=== PATIENT | female | born 1960 | race Caucasian/White ===

== ENCOUNTER 2018-04-14 06:26 | Day surgery (SDC) | payer BC ==
--- NOTE | 2018-04-12 16:19 | RAD REPORT ---
EXAM DESCRIPTION: RAD - Chest Pa And Lat (2 Views) - 04/12/2018 4:14 pm CLINICAL HISTORY: Preop chest, pending cholecystectomy COMPARISON: July 2013, June 2013 TECHNIQUE: PA and lateral views of the chest were obtained. FINDINGS: The lungs are clear. Lung markings are similar to comparison. Right convexity in the medi astinum not clearly different back to the June 2013 study. Heart size is normal and central vascul ature is within normal limits. No pleural effusion or pneumothorax seen. No acute bony finding note d. No aortic abnormality. IMPRESSION: No acute cardiopulmonary process.
[2018-04-12 17:04] LABS: Absolute Lymphocytes (CBC) 2.3 K/uL (0.7-4.9); Absolute Monocytes 0.6 K/uL (0.1-1.3); Absolute Neutrophil 3.6 K/uL (1.8-8.0); Basophils % 1.2 % (0-1.3); Eosinophils % 3.1 % (0-4.4); Hematocrit 38.1 % (36.0-45.0); Lymphocytes % 33.8 % (15.3-44.8); MCH 30.3 pg (27.0-35.0); MCV 92.1 fL (80-100); MPV 9.8 fL (7.6-11.3); Monocytes % 8.7 % (3.3-12.3); RBC Red Blood Cell Count 4.14 M/uL (3.86-4.86)
[2018-04-12 17:19] LABS: Potassium 3.9 mmol/L (3.5-5.1)
[2018-04-12 17:21] LABS: ALT/SGPT 25 U/L (12-78); AST/SGOT 15 U/L (15-37); Albumin 3.4 g/dL (3.4-5.0); Alkaline Phosphatase 122 U/L (45-117); Amylase Level 35 U/L (25-115); Bilirubin Direct < 0.1 mg/dL (0-0.2); Bilirubin Total 0.2 mg/dL (0.2-1.0); Lipase 129 U/L (73-393)
--- OUTSIDE RECORDS SUMMARY | 2018-04-14 06:35 | XMS REPORT | Summary of Care ---
:1960 Author Organization [facility] Address [address] [address], [place] [address]- Encounter HQ Encntr_alias(FIN) [id number] Date(s): 01/18/15 - 02/16/15 [facility] [address] [place] [address]- Discharge Disposition: Home Attending Physician: Shelia Bryan MD Vital Signs No data available for this section Problem List No data available for this section Allergies, Adverse Reactions, Alerts No data available for this section Medications No data available for this section Results No data available for this section Immunizations No data available for this section Procedures No data available for this section Social History No data available for this section Assessment and Plan No data available for this section
--- OUTSIDE RECORDS SUMMARY | 2018-04-14 06:35 | XMS REPORT | Continuity of Care Document ---
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 [id number] 01/13/1978 06/08/1984, [facility] section<sup>1</sup 02/614174 > [id number] 01/13/1978 06/08/1984, [facility] section<sup>1</sup 02/136364 [place] > [id number] 01/13/1978 06/08/1984, [facility] section<sup>1</sup 02/649742 [facility] >
--- OUTSIDE RECORDS SUMMARY | 2018-04-14 06:36 | XMS REPORT | Summary of Care ---
:1960 Author Organization [facility] Out[facility] [place] Address [address], [place] [address]- Encounter HQ Encntr_alias(FIN) [id number] Date(s): 05/01/16 - 05/01/16 [facility] [place] [address] [place] [address]- [phone] Discharge Disposition: Home or Self Care Attending Physician: Rao Yuan MD Vital Signs No data available for [...]
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
--- OUTSIDE RECORDS SUMMARY | 2018-04-14 06:36 | XMS REPORT | Summary of Care ---
:1960 Author Organization [facility] Outpatient Imaging [place] Address [address] [place], [place] [address]- Encounter HQ Encntr_alias(FIN) [id number] Date(s): 06/04/16 - 06/04/16 [facility] Outpatient Imaging [address], [address] [place] [address]- [phone] Discharge Disposition: Home or Self Care Attending Physician: Liu Serna MD Vital Signs No data available for this section Problem List Condition Effective Dates Status Health Status Informant Migraines(Confirmed) Active Pneumonia(Confirmed) 2013 Resolved Allergies, Adverse Reactions, Alerts Substance Reaction Severity Status Topamax1, 2 Active 1Generic [id number] Medications No data available for this section Results No data available for this section Immunizations No data available for this section Procedures No data available for this section Social History Social History Type Response Alcohol Current Smoking Status Never smoker; Exposure to Tobacco Smoke None; Cigarette Smoking Last 365 Days No; Reg Smoking Cessation Counseling No Assessment and Plan No data available for this section
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
--- OUTSIDE RECORDS SUMMARY | 2018-04-14 06:36 | XMS REPORT | Summary of Care ---
:1960 Author Organization [facility] [place] Address [address] [place] [address]- Encounter HQ Encntr_alias(FIN) [id number] Date(s): 05/27/16 - 05/27/16 [facility] [place] [address] [place] [address]- [phone] Discharge Disposition: Home or Self Care Attending Physician: Anahi Huston MD Vital Signs No data available for this section Problem List Condition Effective Dates Status Health Status Informant Migraines(Confirmed) Active Pneumonia(Confirmed) 2013 Resolved Allergies, Adverse Reactions, Alerts Substance Reaction Severity Status Topamax1, 2 Active 1Generic [id number] Medications No data available for this section [...]
[2018-04-14] MEDS ORDERED: CEFOXITIN/SWI 1gm 1 GM/10 ML SYR ONE (07:22)
[2018-04-14] MEDS ORDERED: Ringers Lactate 1,000 ML IV ONE (07:22)
[2018-04-14] MEDS ORDERED: PROPOFOL 200 MG/20 ML VIAL IV ONE (07:49)
[2018-04-14] MEDS ORDERED: ONDANSETRON HCL 40 MG/20 ML VIAL ONE (07:49)
[2018-04-14] MEDS ORDERED: MIDAZOLAM HCL 2 MG/2 ML INJ ONE (07:49)
[2018-04-14] MEDS ORDERED: ROCURONIUM 50 MG/5 ML VIAL IV ONE (07:49)
[2018-04-14] MEDS ORDERED: FENTANYL CITR 100 MCG/2 ML ONE (07:49)
[2018-04-14] MEDS ORDERED: LIDOCAINE 2% MPF 5 ML VIAL ONE (07:49)
--- NOTE | 2018-04-14 08:43 | P.BOP ---
Preoperative diagnosis: symptomatic cholelithiasis, acute cholecystitis Postoperative diagnosis: same Primary procedure: Laparoscopic cholecystectomy Supply Chain Vice President: Emma Ferrell (Pratima) Estimated blood loss: <10cc Specimen: gb Findings: as above Anesthesia: General Complications: None Transferred to: Recovery Room Condition: Good
[2018-04-14] MEDS ORDERED: MEPERIDINE HCL 50 MG/ML AMP ONE (09:03)
[2018-04-14 14:45] VITALS: TEMP 97.6
[2018-04-14 14:47] VITALS: BP 101/52; O2SAT 98
--- NOTE | 2018-04-14 20:12 | OP ---
Date of Procedure: 04/14/2018 Surgeon: Tray Serna MD Circus Rider: ELAN Philip Anesthesiologist: Nurse regional controller, Юлия. Preoperative Diagnoses: Acute cholecystitis, symptomatic cholelithiasis, and right upper quadrant pa in. Postoperative Diagnoses: Acute cholecystitis, symptomatic cholelithiasis, and right upper quadrant p ain. Procedure: Laparoscopic cholecystectomy. Estimated Blood Loss: Less than 10 cc. Specimen: Gallbladder. Anesthesia: General plus local. Indications: This is the case of a 57-year-old patient with above diagnosis. Fully explained the be nefits, alternatives, and risks of laparoscopic, possible open cholecystectomy, which include, but no t limited to infection, bleeding, damage to adjacent structures, anesthesia complication, choledochol ithiasis, bile leak, pancreatitis, [place], and even . She also understood this may not relieve any symptoms. She might need more than one surgical intervention. She understood, signed a consent. Description Of Procedure: The patient was brought to the operating room and placed in supine positio n. Anesthesia was done without complication. Abdominal area was prepped and draped in the usual sridhar rile fashion. Marcaine 0.5% was injected for local anesthetic, followed by sharp incision of the ski n in the infraumbilical region. The incision was carried down to fascia, which was opened under dire ct vision. Peritoneum was encountered and opened under direct vision. Vicryl #1 placed inside the f ascia. Lara trocar was carefully introduced. Pneumoperitoneum was obtained. After that, I placed 3 more trocars, 5 mm each one of them, in the right upper quadrant under direct visualization. At t hat moment, I proceeded to place the patient in reverse Trendelenburg position. A grasper was placed in the fundus of the gallbladder, another grasper in the infundibulum. The gallbladder was retracte d in the inferolateral fashion, exposing the triangle of Calot and obtaining critical view of safety. The cystic duct and cystic artery were clearly isolated, freed circumferentially, and a connection between those and the gallbladder was clearly identified. I proceeded to ligate those by using at le ast 3 clips proximal, 1 clip distal, ligation in middle. Same was done with the cystic artery. No b ile leak. No bleeding. The gallbladder was removed from liver using Bovie cauterizer and removed fr om abdominal cavity using an EndoCatch through the umbilical incision. The area was inspected once a gain. No bile leak. No bleeding. Gallbladder fossa with no bleeding. At that moment, I proceeded to remove the trocars under direct vision, deflated pneumoperitoneum, closed the fascia with #1 Vicry l. Irrigated subcutaneous tissue, closed that with 3-0 chromic, and skin with 3-0 chromic in a subcu ticular fashion with Steri-Strips on top. Sponge count and instrument counts were correct. The vernon ent tolerated the procedure well. The patient was sent to Recovery in stable condition. Disposition: Home. Activity: As tolerated. No heavy lifting. Followup: Follow up in my office in 1 week. Call for an appointment, [phone]. Keep area dry for 4 8 hours, then may shower. Keep Steri-Strips intact. Medications: See orders. SELENE/DAVID Voice ID: [id number] Report ID: [id number]
== END 2018-04-14 10:20 | disposition home or self-care (01) ==
LOC: OR 06:26
PROVIDERS: ATTEND Surgery
PROC: 0FT44ZZ Resection of Gallbladder, Percutaneous Endoscopic Approach (ICD-10-PCS; principal; 2018-04-14 07:30)
DX: K80.12 Calculus of gallbladder with acute and chronic cholecystitis without obstruction (principal); E07.9 Disorder of thyroid, unspecified; Z88.8 Allergy status to other drugs, medicaments and biological substances; Z82.49 Family history of ischemic heart disease and other diseases of the circulatory system
CPT/HCPCS: 36415; 71046; 80048; 80076; 82150; 83690; 85025; 88304; J2175; J2250; J2405; J2704; J3010